=== PATIENT | female | born 2000 | race Two or more races ===

== ENCOUNTER 2019-02-02 20:10 | Emergency (ER) | payer SELFPAY ==
[~2019-02-02] VITALS: Ht 160 cm; Wt 56.4 kg
[2019-02-02] MEDS ORDERED: SODIUM CHLORIDE FLUSH 10ML SYR IVF ONE (21:00)
[2019-02-02 21:14] LABS: BASOPHILS # (AUTO) 0.01 x10^3/uL (0-0.3); BASOPHILS % (AUTO) 0 % (0-1); EOSINOPHILS # (AUTO) 0.08 x10^3/uL (0-0.8); EOSINOPHILS % (AUTO) 1 % (1-7); LYMPHOCYTES # (AUTO) 1.58 x10^3/uL (1-6.1); LYMPHOCYTES % (AUTO) 12 % (22-44); MD NO; MEAN CORPUSCULAR HEMOGLOBIN 29.9 pg (27.0-34.8); MEAN CORPUSCULAR VOLUME 88.2 fL (80-100); MEAN PLATELET VOLUME 7.3 fL (7.4-10.4); MONOCYTES % (AUTO) 3 % (2-9); NEUTROPHILS # (AUTO) 10.68 x10^3/uL (1.8-8.0); NEUTROPHILS % (AUTO) 84 % (42-75); PLATELET COUNT 428 x10^3/uL (130-400); RED CELL DISTRIBUTION WIDTH 12.6 % (9.6-15.2)
[2019-02-02 21:20] LABS: ALBUMIN 3.7 g/dL (3.4-5.0); ANION GAP 6 mmol/L (5-15); CALCIUM 9.5 mg/dL (8.5-10.1); CHLORIDE 106 mmol/L (98-107); CREATININE 0.87 mg/dL (0.55-1.02)
[2019-02-02] MEDS ORDERED: KETOROLAC 30 MG/1 ML IVPush ONE (21:30)
[2019-02-02] MEDS ORDERED: AMPICILLIN/SULBACTAM 3 GM in SODIUM CHLORIDE 0.9% 100 ML IV ONE (21:30)
[2019-02-02] MEDS ORDERED: DEXAMETHASONE 4 MG/ML, 1ML IVPush ONE (21:30)
--- NOTE | 2019-02-02 21:40 | NUR ---
ASSUMED CARE OF PATIENT. PATIENT REPORTS SORE THROAT AND PAIN SWALLOWNIG AND TALKING. FRIENDS AT BEDSIDE. VS STABLE. WILL CONTINUE TO MONITOR.
[2019-02-02] MEDS ORDERED: KETOROLAC 30 MG/1 ML ONE ×2 (21:42→21:57)
[2019-02-02] MEDS ORDERED: DEXAMETHASONE 4 MG/ML, 1ML ONE (21:42)
--- NOTE | 2019-02-02 22:09 | NUR ---
No blood cultures needed
--- NOTE | 2019-02-02 22:52 | NUR ---
ENT DOC IN ROOM SETTING UP FOR ID
[2019-02-02] MEDS ORDERED: LIDOCAINE 1%-EPI 1:100K, 20ML ONE (22:56)
[2019-02-02 23:09] VITALS: BP 125/79
== END 2019-02-02 23:12 | disposition home or self-care (01) ==
LOC: ED 23:06
DX: J36 Peritonsillar abscess (principal)
CPT/HCPCS: 36415; 70491; 80048; 82040; 85025; 96365; 96375; 99284; J0295; J1100; J1885

== ENCOUNTER 2019-02-18 01:00 | Emergency (ER) | payer OTHER ==
[~2019-02-18] VITALS: Ht 160 cm; Wt 53.9 kg
[2019-02-18 01:02] VITALS: BP 124/90
[2019-02-18 01:47] LABS: CULTURE INDICATED? YES; MICROSCOPIC INDICATED
[2019-02-18] MEDS ORDERED: AZITHROMYCIN 250 MG TABLET PO STA (01:56)
[2019-02-18] MEDS ORDERED: CEFTRIAXONE 250 MG IM ONE (02:00)
[2019-02-18] MEDS ORDERED: CEFTRIAXONE 250 MG ONE (02:23)
[2019-02-18] MEDS ORDERED: AZITHROMYCIN 250 MG TABLET ONE (02:23)
[2019-02-18 02:26] LABS: CLUE CELLS NONE SEEN (NONE SEEN); WET PREP WBCS MANY (FEW)
--- NOTE | 2019-02-18 02:35 | NUR ---
PT MEDICATED ORDERED AND AWAITING DC HOME
[2019-02-18 02:56] LABS: HCG UR SG 1.032 (1.003-1.030)
== END 2019-02-18 02:52 | disposition home or self-care (01) ==
LOC: ED 02:50
DX: N73.0 Acute parametritis and pelvic cellulitis (principal)
CPT/HCPCS: 81001; 81025; 87077; 87086; 87210; 87491; 87591; 87808; 96372; 99283; J0696; 87186

== ENCOUNTER 2021-01-21 11:25 | Emergency (ER) | payer MEDICAID, OTHER ==
[~2021-01-21] VITALS: Ht 160 cm; Wt 56.6 kg
[2021-01-21 12:06] LABS: BASOPHILS % (AUTO) 1 % (0-1); EOSINOPHILS % (AUTO) 1 % (1-7); LYMPHOCYTES % (AUTO) 39 % (22-44); MEAN CORPUSCULAR HEMOGLOBIN 31.1 pg (27.0-34.8); MEAN CORPUSCULAR HGB CONC 34.5 g/dL (32.4-35.8); MEAN PLATELET VOLUME 7.8 fL (7.4-10.4); MONOCYTES % (AUTO) 7 % (2-9); NEUTROPHILS % (AUTO) 52 % (42-75); PLATELET COUNT 308 x10^3/uL (130-400); RED BLOOD COUNT 4.77 x10^6/uL (3.82-5.3); RED CELL DISTRIBUTION WIDTH 12.2 % (9.6-15.2)
[2021-01-21 12:07] LABS: MD NO
[2021-01-21 12:14] LABS: ALANINE AMINOTRANSFERASE 20 U/L (12-78); ALBUMIN 3.7 g/dL (3.4-5.0); ANION GAP 8 mmol/L (5-15); CALCIUM 8.8 mg/dL (8.5-10.1); CHLORIDE 110 mmol/L (98-107); CREATININE 0.79 mg/dL (0.55-1.02)
--- NOTE | 2021-01-21 12:15 | NUR ---
assumed care of pt. pt here for sternal CP and SOB x2 days. pt reports that she was seen at and was told that there was an "incidental finding" on her EKG pt has no cardiac or resp. hx. no medical hx pt sitting up on gutney in position of comfort. no apparent distress. SO at bedside pt updated on POC
[2021-01-21 12:19] LABS: ALKALINE PHOSPHATASE 69 U/L (45-117); BILIRUBIN,TOTAL 0.4 mg/dL (0.2-1.0); TROPONIN I < 0.015 ng/mL (0.000-0.045)
[2021-01-21 12:28] VITALS: BP 104/61
--- NOTE | 2021-01-21 12:38 | NUR ---
Dr. Turcios has been to bedside for eval report to [facility] ACOSTA for lunch
--- NOTE | 2021-01-21 13:42 | NUR ---
this pt was D/C by another RN
== END 2021-01-21 13:02 | disposition home or self-care (01) ==
LOC: ED 12:24
DX: R07.89 Other chest pain (principal)
CPT/HCPCS: 36415; 71045; 80053; 83690; 84484; 84703; 85025; 85379; 93005; 99285

== ENCOUNTER 2021-02-12 21:59 | Emergency (ER) | payer MEDICAID ==
[~2021-02-12] VITALS: Ht 160 cm; Wt 57.2 kg
[2021-02-12 22:03] VITALS: BP 103/37
[2021-02-12] MEDS ORDERED: L.E.T SOLUTION TP ONE ×2 (22:30→22:38)
[2021-02-12] MEDS ORDERED: LIDOCAINE 2%, 20ML SQ ONE (22:30)
[2021-02-12] MEDS ORDERED: LIDOCAINE-MPF 2% ,5ML ONE (22:37)
== END 2021-02-13 00:06 | disposition home or self-care (01) ==
LOC: ED 22:15
DX: L03.115 Cellulitis of right lower limb (principal); L02.415 Cutaneous abscess of right lower limb
CPT/HCPCS: 10060; 99283